=== PATIENT | female | born 1960 | race African-American/Black ===

== ENCOUNTER 2018-04-13 23:00 | Emergency (ER) | payer OTHER ==
[~2018-04-13] VITALS: Ht 162.6 cm; Wt 82.0 kg
[2018-04-14] MEDS ORDERED: DIPHENHYDRAMINE 12.5MG/5ML UDC PO ONE (02:30)
[2018-04-14] MEDS ORDERED: SULFAMETHOXAZOLE/TRIMETHOPRIM 800/160MG TABLET PO ONE (02:30)
[2018-04-14 02:50] VITALS: BP 152/80
== END 2018-04-14 02:32 | disposition home or self-care (01) ==
LOC: ER 23:00
DX: L03.114 Cellulitis of left upper limb (principal); I10 Essential (primary) hypertension; F17.200 Nicotine dependence, unspecified, uncomplicated; F12.10 Cannabis abuse, uncomplicated; W57.XXXA Bitten or stung by nonvenomous insect and other nonvenomous arthropods, initial encounter; Y93.89 Activity, other specified; Y99.8 Other external cause status; Y92.89 Other specified places as the place of occurrence of the external cause; Z98.890 Other specified postprocedural states
CPT/HCPCS: 99283; Q0163

== ENCOUNTER 2019-02-19 18:24 | Emergency (ER) | payer OTHER | END 2019-02-19 19:00 | disposition left against medical advice (07) | LOC: ER 18:24 | DX: Z53.21 Procedure and treatment not carried out due to patient leaving prior to being seen by health care provider (principal) ==

== ENCOUNTER 2019-03-11 06:22 | Emergency (ER) | payer OTHER ==
[~2019-03-11] VITALS: Ht 162.6 cm; Wt 82.0 kg
[2019-03-11] MEDS ORDERED: HYDROCODONE/ACETAMINOPHEN 5/325MG TABLET PO ONE (09:00)
[2019-03-11 09:28] VITALS: BP 130/66
== END 2019-03-11 09:29 | disposition home or self-care (01) ==
LOC: ER 07:43
DX: M25.512 Pain in left shoulder (principal); I10 Essential (primary) hypertension; F17.200 Nicotine dependence, unspecified, uncomplicated; Z98.890 Other specified postprocedural states
CPT/HCPCS: 99283

== ENCOUNTER 2019-03-12 07:13 | Emergency (ER) | payer OTHER ==
[~2019-03-12] VITALS: Ht 162.6 cm; Wt 82.0 kg
[2019-03-12] MEDS ORDERED: MORPHINE SULFATE 10 MG/ML CPJ IM ONE (08:45)
[2019-03-12 09:50] VITALS: BP 139/76
== END 2019-03-12 10:00 | disposition home or self-care (01) ==
LOC: ER 07:13
DX: M25.512 Pain in left shoulder (principal); M75.102 Unspecified rotator cuff tear or rupture of left shoulder, not specified as traumatic; I10 Essential (primary) hypertension; F17.210 Nicotine dependence, cigarettes, uncomplicated
CPT/HCPCS: 96372; 99283; J2270; Z7610

== ENCOUNTER 2025-11-07 13:45 | Emergency (ER) | payer MEDICAID ==
[~2025-11-07] VITALS: Ht 165.1 cm; Wt 75.0 kg
[2025-11-07 13:55] VITALS: O2SAT 99
[2025-11-07] MEDS: KETOROLAC 30MG/ML VIAL IM ONE (16:18)
[2025-11-07] MEDS ORDERED: IBUP-1455 MT (16:37)
[2025-11-07] MEDS ORDERED: P20 MT (16:37)
[2025-11-07 17:00] VITALS: BP 146/86; PULSE 80; RESP 14; TEMP 36.7; O2SAT 99
== END 2025-11-07 17:01 | disposition home or self-care (01) ==
LOC: ER 13:45
DX: M65.342 Trigger finger, left ring finger (principal); I10 Essential (primary) hypertension
CPT/HCPCS: 99283; 73140; 29130; 96372; J1885